=== PATIENT | female | born 1980 | race Caucasian/White ===

== ENCOUNTER 2017-12-29 11:13 | Emergency (ER) | payer OTHER, MEDICAID ==
[~2017-12-29] VITALS: Ht 162.6 cm; Wt 72.6 kg
[2017-12-29 11:20] VITALS: Ht 162.6 cm; Wt 72.6 kg
[2017-12-29 12:40] VITALS: BP 131/99
== END 2017-12-29 12:40 | disposition home or self-care (01) ==
LOC: ED 11:13
DX: M25.521 Pain in right elbow (principal)